=== PATIENT | female | born 1965 ===

== ENCOUNTER 2024-04-03 06:00 | Day surgery (SDC) | payer OTHER ==
[2024-04-02 08:25] LABS: HEMATOCRIT 37.2 % (36.0-45.00); HEMOGLOBIN 12.8 g/dL (12.0-15.00); MEAN CELL VOLUME 90.3 fL (80.00-100.00); MEAN CORPUSCULAR HGB CONC 34.3 g/dl (32.0-36.0); PLATELET COUNT 266 K/uL (150-450); RED BLOOD COUNT 4.11 M/uL (4.00-6.00); RED CELL DISTRIBUTION WIDTH 14.1 % (11.5-14.5)
[2024-04-02 08:34] LABS: URINE APPEARANCE Clear; URINE BILIRRUBIN Negative (NEGATIVE); URINE BLOOD Negative; URINE COLOR Yellow; URINE KETONE Trace (NEGATIVE); URINE LEUKOCYTE Negative; URINE NITRATE Negative; URINE PROTEIN Trace (NEGATIVE)
[2024-04-02 08:39] LABS: URINE RBC 7.1 uL (0.0-20.8); URINE WBC 40.1 uL (0.0-23.2)
[2024-04-02 08:42] LABS: URINE GLUCOSE >=1000 MG/DL (NEGATIVE)
[2024-04-02 08:50] LABS: INR < 0.93; PARTIAL THROMBOPLASTIN TIME 24.5 SECONDS (22.0-34.0); PROTHROMBIN TIME 9.7 SECONDS (9.0-11.5)
[2024-04-02 09:22] LABS: ALBUMIN 3.6 gm/dL (3.4-5.0); BILIRUBIN TOTAL 0.36 mg/dL (0.3-1.2); CALCIUM 9.6 mg/dL (8.5-10.1); CHOL HDL RATIO 3.5 (0-5.0); CREATININE SERUM 0.7 mg/dL (0.55-1.02); GFR 85.35; GLOBULINA 4.4 G/DL (2.4-3.5); POTASSIUM 4.77 mEq/L (3.5-5.1)
[~2024-04-03 06:00] MED LIST: COZAAR25 MG PO; GLUCOTROL XL5 MG PO; LANTUS SOL100 UNIT/1 SQ; LIPITOR40 M1 PO
[2024-04-03] MEDS ORDERED: CEFAZOLIN SODIUM 1,000 MG VIAL ONE ×2 (18:53→19:09)
[2024-04-03] MEDS ORDERED: POVIDONE-IODINE 118 ML BOTT TOP ONE (20:04)
[2024-04-03] MEDS ORDERED: hydrALAZINE HCL 20 MG VIAL ONE (20:04)
[2024-04-03] MEDS ORDERED: BUPIVACAINE HCL/Mpf 0.5% 10ML VIAL ONE (20:19)
[2024-04-03] MEDS ORDERED: PERCOCET 5-3251 EACH PO (21:11)
[2024-04-03] MEDS ORDERED: DUI500 PO (21:11)
== END 2024-04-04 01:05 | disposition home or self-care (01) ==
LOC: CIR.AMB 06:00
PROVIDERS: ATTEND Orthopaedic Surgery
DX: S52.531A Colles' fracture of right radius, initial encounter for closed fracture (principal); S52.691A Other fracture of lower end of right ulna, initial encounter for closed fracture; M81.0 Age-related osteoporosis without current pathological fracture; Z88.6 Allergy status to analgesic agent; I10 Essential (primary) hypertension; J45.909 Unspecified asthma, uncomplicated; E11.9 Type 2 diabetes mellitus without complications; M19.90 Unspecified osteoarthritis, unspecified site; F41.8 Other specified anxiety disorders
CPT/HCPCS: 25609; 20902; 25101; 25652; L8699